=== PATIENT | female | born 1985 | race Caucasian/White ===

== ENCOUNTER 2023-10-04 09:21 | Emergency (ER) | payer OTHER ==
[~2023-10-04] VITALS: Ht 162.6 cm; Wt 53.0 kg
[~2023-10-04 09:21] MED LIST: IBUP600T26 PO
[2023-10-04 11:00] LABS: BASO % 0.4 % (0.0-1.0); EOS # 0.1 10^3/uL (0.0-0.5); EOS % 0.5 % (0.0-3.0); HEMATOCRIT 41.4 % (36.0-47.0); HEMOGLOBIN 13.6 g/dl (12.0-15.5); LYMPH # 0.9 10^3/uL (1.5-5.0); LYMPH % 9.4 % (24.0-44.0); MEAN CORPUSCULAR HEMOGLOBIN 30.2 pg (27.0-33.0); MEAN CORPUSCULAR HGB CONC 32.9 g/dl (32.0-36.5); MEAN CORPUSCULAR VOLUME 91.8 fl (80.0-96.0); MONO # 0.4 10^3/uL (0.0-0.8); MONO % 4.1 % (2.0-8.0); NEUTROPHILS # 8.5 10^3/uL (1.5-8.5); NEUTROPHILS % 85.2 % (36.0-66.0); PLATELET COUNT, AUTOMATED 220 10^3/uL (150-450); RED BLOOD COUNT 4.51 10^6/uL (4.00-5.40)
[2023-10-04] MEDS: ONDANSETRON 4MG 2ML VIAL IV ONE (11:10)
[2023-10-04] MEDS ORDERED: KETOROLAC 30 MG/ML 1ML VIAL As Ordered ONE (11:31)
[2023-10-04] MEDS ORDERED: ONDANSETRON 4MG 2ML VIAL As Ordered ONE (11:31)
[2023-10-04] MEDS: NS 1,000 ML IV ONE (11:35)
[2023-10-04] MEDS: KETOROLAC 30 MG/ML 1ML VIAL IV ONE (11:35)
[2023-10-04 11:38] LABS: ALBUMIN 4.2 G/DL (3.2-5.2); ALKALINE PHOSPHATASE 60 U/L (46-116); ALT/SGPT 24 U/L (7.0-40); AST/SGOT 24 U/L (<34); BILIRUBIN,DIRECT 0.3 MG/DL (<0.4); BILIRUBIN,TOTAL 0.7 MG/DL (0.3-1.2); BLOOD UREA NITROGEN 15 MG/DL (9-23); CALCIUM LEVEL 9.4 MG/DL (8.5-10.1); CARBON DIOXIDE LEVEL 27 MMOL/L (20-31); CHLORIDE LEVEL 108 MMOL/L (98-107); CREATININE FOR GFR 0.64 MG/DL (0.55-1.30); GLOMERULAR FILTRATION RATE > 60.0 (>60); GLUCOSE, FASTING 97 MG/DL (60-100); LIPASE 38 U/L (12-53); POTASSIUM SERUM 4.2 MMOL/L (3.5-5.1); SODIUM LEVEL 140 MMOL/L (136-145)
[2023-10-04] MEDS: METOCLOPRAMIDE INJ 10MG/2ML VIAL IV ONE (12:03)
[2023-10-04 13:05] LABS: GC DNA AMPLIFICATION NEGATIVE (NEGATIVE)
[2023-10-04] MEDS: ACETAMINOPHEN 500 MG TAB PO ONE (13:06)
[2023-10-04 13:50] VITALS: BP 110/68; TEMP 96.7; O2SAT 100
== END 2023-10-04 13:52 | disposition home or self-care (01) ==
LOC: M ED 09:21
DX: R10.9 Unspecified abdominal pain (principal); Z88.8 Allergy status to other drugs, medicaments and biological substances
CPT/HCPCS: 74176; 80048; 80076; 81001; 83690; 85025; 86140; 87810; 87850; 96361; 96374; 96375; 99284; J1885; J2765

== ENCOUNTER 2024-10-04 14:19 | Emergency (ER) | payer OTHER ==
[~2024-10-04] VITALS: Ht 162.6 cm; Wt 54.3 kg
[2024-10-04 15:06] LABS: HEMATOCRIT 49.3 % (36.0-47.0); HEMOGLOBIN 16.4 g/dl (12.0-15.5); MEAN CORPUSCULAR HEMOGLOBIN 30.2 pg (27.0-33.0); MEAN CORPUSCULAR HGB CONC 33.3 g/dl (32.0-36.5); MEAN CORPUSCULAR VOLUME 90.8 fl (80.0-96.0); PLATELET COUNT, AUTOMATED 266 10^3/uL (150-450); RED BLOOD COUNT 5.43 10^6/uL (4.00-5.40); WHITE BLOOD COUNT 16.1 10^3/uL (4.0-10.0)
[2024-10-04 15:33] LABS: BLOOD UREA NITROGEN 20 MG/DL (9-23); CALCIUM LEVEL 9.8 MG/DL (8.5-10.1); CARBON DIOXIDE LEVEL 25 MMOL/L (20-31); CHLORIDE LEVEL 105 MMOL/L (98-107); CREATININE FOR GFR 0.68 MG/DL (0.55-1.30); GLOMERULAR FILTRATION RATE > 90.0 (>58); GLUCOSE, FASTING 113 MG/DL (60-100); POTASSIUM SERUM 4.1 MMOL/L (3.5-5.1); SODIUM LEVEL 143 MMOL/L (136-145)
[2024-10-04] MEDS: NS (Normal Saline) 0.9% 1,000 ML IV ONE ×2 (15:55→17:31)
[2024-10-04] MEDS: METOCLOPRAMIDE INJ 10MG/2ML VIAL IV ONE ×2 (15:55→20:30)
[2024-10-04 16:14] LABS: LIPASE 33 U/L (12-53)
[2024-10-04 16:16] LABS: ALBUMIN 4.7 G/DL (3.2-5.2); ALKALINE PHOSPHATASE 56 U/L (35-104); ALT/SGPT 40 U/L (7.0-40); AST/SGOT 29 U/L (<34); BILIRUBIN,DIRECT 0.3 MG/DL (<0.4); BILIRUBIN,TOTAL 0.9 MG/DL (0.3-1.2); TOTAL PROTEIN 8.4 G/DL (5.7-8.2)
[2024-10-04] MEDS ORDERED: ISOVUE-370 76% 100ML VIAL As Ordered ONE (17:16)
[2024-10-04] MEDS: ACETAMINOPHEN *IV* 1,000 MG in IV 1 EA IV ONE (17:32)
[2024-10-04] MEDS: diphenhydrAMINE 50MG/ML VIAL IV ONE (17:32)
[2024-10-04] MEDS: KETOROLAC 30 MG/ML 1ML VIAL IV ONE (17:33)
[2024-10-04 19:31] LABS: APPEARANCE, URINE CLEAR (CLEAR); BACTERIA, URINE AUTO 1+ (NEGATIVE); BILIRUBIN, URINE AUTO NEGATIVE (NEGATIVE); BLOOD, URINE BLOOD NEGATIVE (NEGATIVE); COLOR, URINE STRAW (YELLOW); GLUCOSE, URINE (UA) AUTO NEGATIVE (NEGATIVE); KETONE, URINE AUTO 1+ mg/dL (NEGATIVE); LEUKOCYTE ESTERASE, URINE AUTO NEGATIVE (NEGATIVE); MUCUS, URINE SMALL (NEGATIVE); NITRITE, URINE AUTO NEGATIVE (NEGATIVE); PROTEIN, URINE AUTO NEGATIVE (NEGATIVE); RBC, URINE AUTO 1 /HPF (0-3); SPECIFIC GRAVITY URINE AUTO 1.054 (1.002-1.035); SQUAMOUS EPITHELIAL CELL UR AU 5 /HPF (0-6); UROBILINOGEN, URINE AUTO 0.2 mg/dL (0.0-2.0); WBC, URINE AUTO 1 /HPF (0-3)
[2024-10-04 20:30] VITALS: BP 130/85; O2SAT 98
[2024-10-04] MEDS ORDERED: REGL10TA6 PO (20:36)
[2024-10-04 20:50] VITALS: TEMP 98.4
== END 2024-10-04 20:53 | disposition home or self-care (01) ==
LOC: M ED 14:19
DX: G43.909 Migraine, unspecified, not intractable, without status migrainosus (principal); A08.19 Acute gastroenteropathy due to other small round viruses; Z88.5 Allergy status to narcotic agent; Z88.8 Allergy status to other drugs, medicaments and biological substances; Z79.899 Other long term (current) drug therapy
CPT/HCPCS: 74177; 80048; 80076; 81001; 83690; 84702; 85027; 87486; 87507; 87581; 87633; 87798; 96361; 96365; 96366; 96375; 96376; 99284; J0131; J1200; J1885; J2765; Q9967